=== PATIENT | male | born 1940 | race Caucasian/White ===

== ENCOUNTER 2018-07-01 14:29 | Emergency (ER) | payer OTHER ==
[~2018-07-01] VITALS: Ht 170.2 cm; Wt 86.4 kg
[2018-07-01 14:33] VITALS: Ht 170.2 cm; Wt 86.4 kg
[2018-07-01] MEDS ORDERED: BP PILL (14:35)
[2018-07-01] MEDS ORDERED: DEPRESSION PILL (14:35)
[2018-07-01] MEDS ORDERED: EYE DROP (14:36)
[2018-07-01] MEDS ORDERED: TORADOL10 MG PO (16:11)
[2018-07-01 16:43] VITALS: BP 125/60
== END 2018-07-01 16:45 | disposition home or self-care (01) ==
LOC: D.ER 14:29
DX: S39.012A Strain of muscle, fascia and tendon of lower back, initial encounter (principal); W10.9XXA Fall (on) (from) unspecified stairs and steps, initial encounter; Y93.89 Activity, other specified; Y92.019 Unspecified place in single-family (private) house as the place of occurrence of the external cause; I50.9 Heart failure, unspecified